=== PATIENT | male | born 1960 | race Caucasian/White ===

== ENCOUNTER 2020-07-28 22:23 | Inpatient (IN) | payer OTHER, SELFPAY ==
[2020-07-28] VITALS (18 sets, daily range): BP systolic 137–191; BP diastolic 92–155; PULSE 86–99; RESP 10–26; TEMP 37; O2SAT 93–99
--- NOTE | 2020-07-28 22:15 | RT.EKG_ITS ---
APPROVED REPORT Exam: Resting ECG Patient Location: E HR:95 bpm ECG Measurements Heart Rate 95 AXIS LA 171 P 33 QRSd 117 QRS -13 QT 363 T 66 QTc 458 Conclusion Sinus rhythm...normal P axis, V-rate 60- 99 Incomplete right bundle branch block...QRSd >112, terminal axis(90,270) No STEMI
--- NOTE | 2020-07-28 22:38 | ED.GENADUL_ITS ---
Discharge Plan Disposition Patient Disposition: [facility] INPATIENT Condition: Stable Discharge Details Clinical Impression: ACS (acute coronary syndrome) Admit Date/Time: 07/29/20 06:01 Admit Provider: Keon Cobos Attending Provider: Keon Cobos Primary Care Provider: Unknown,Unknown ED Provider: Dandy Arreola Discharge Data Discharge Date/Time-TO BE ENTERED AT DEPARTURE: 07/29/20 06:53 Medical Decision Making <FLEX Dorman - Last Filed: 07/30/20 08:11> Patient is a pleasant 60-year-old male past medical history significant for hypertension multiple orthopedic surgeries, presenting today with chief complaint of chest pain. He reports that yesterday and today he complains chest pain 30 minutes after eating Ecu[place] food. States that he has been physically active including snowblowing but pain is not brought on with exertion. He denies any associated symptoms such as shortness of breath, fever, cough, nausea, vomiting. Pain does not radiate. He has no pain in his back. He states that prior to the past 2 days, he has not experienced symptoms like this historically. Patient did come up from [place] 2 weeks ago. On exam, patient appears nontoxic. Is resting comfortably. He is morbidly obese. Normal cardiac exam, lung sounds are clear. No abdominal pain on palpation, negative Duval sign. No lower extremity edema, soft and nontender. Patient reports that he did take aspirin prior to arrival. He reports that his pain is improving since initial onset at 7 PM. Patient history, symptoms most consistent with a GI source as it is nonexertional and only associated with eating Ecuadorean food. No evidence to suggest gallbladder disease on exam. Patient is obese and does have a history of hypertension. His father had CABG at the age of 65. Also considered potenti al ACS, plan for troponin. HEART score 3. His history and exam is not consistent with PE. No evidence on exam or history to suggest dissection. No trauma. No rash. ECG was and I specifically asked about [address] Arreola. Patient is in sinus rhythm with a rate of 95. Incomplete right bundle branch block noted. No evidence to suggest a STEMI. No previous for comparison. We will give the patient oral Mylanta. Patient's blood pressure significantly improved once he was able to calm down in the room. He continues to appear nontoxic and is resting comfortably. Pain completely subsided after GI cocktail. At the end of my shift, care transition to Dr. Arreola with labs and imaging pending. Plan to obtain repeat troponin. <Dandy Arreola MD - Last Filed: 07/29/20 06:00> Patient signed out to me pending repeat EKG and troponin after presenting with chest discomfort. The discomfort went away with Mylanta. He had it for about 4 hours prior to presenting. He also had chest pain last night after eating. He has not had pain with activity and has been able to walk a mile, shovel snow, split and pile wood. He has had no recurrent pain here since it resolved with the Mylanta. His repeat EKG is unchanged and is sinus rhythm with incomplete right bundle branch block and probable LVH. His repeat troponin did bump slightly from less than 0.05 to 0.07. Doubt that this has any clinical significance and I do believe his symptoms are related to GI pathology. However, given his age and risk factors I have had further discussion with the patient. We will plan another 3-hour troponin and EKG and observation here in the ED. 05:15 - Patient has remained pain-free with stable vital signs. Repeat EKG is unchanged. Troponin continues to climb and is now 0.34. Calls placed to [facility] and [facility] but both facilities full and not taking transfers unless emergent. Discussed with cardiology at [facility], will keep here on heparin and trend troponins. Loaded with Plavix 300 mg. Start Lopressor and Lipitor. Call back this afternoon to check on bed status for transfer. Call back emergently if any significant changes. Case discussed with hospitalist here. Patient will be admitted to ICU on heparin for further monitoring and trending of enzymes. Lab Data Lab results reviewed: Yes I reviewed the patient's lab results. ECG Data Attestation: I personally reviewed and interpreted this ECG (s) as follows: Interpretation: see EKG HPI <FLEX Dorman - Last Filed: 07/30/20 08:11> General Mode of arrival: ambulatory . Date/Time Provider Initiated Documentation: 07/28/20 22:24 . Limitations to Documentation: no limitations . Information obtained by: patient and RN notes reviewed . History of Present Illness 60 year old M presents to the emergency department with the chief complaint of chest pain, described as moderate, with intensity rated at 4. Quality is described as other (squeezing), and is localized to the chest. Patient reports no radiation. Patient started experiencing this hour(s) and it has been intermittent. No relieving factors improve symptom(s), Eating worsens symptoms . Patient notes chest pain; denies cough, diaphoresis, fever/chills, loss of appetite, nausea/vomiting, shortness of breath and syncope. Patient did receive the following treatments prior to arrival, none Related Data Home Medications Medication Instructions Recorded Confirmed amlodipine 10 mg PO HS 07/28/20 07/29/20 aspirin [Aspir-81] 81 mg PO DAILY AM 07/28/20 07/28/20 Allergies Allergy/AdvReac Type Severity Reaction Status Date / Time No Known Allergies Allergy Unverified 07/28/20 22:37 General Stated Complaint: Chest Pain NARCISA: 2 Review of Systems <FLEX Dorman - Last Filed: 07/30/20 08:11> Constitutional Constitutional: Reports as per HPI, Denies chills, Denies fever(s), Denies headache(s), Denies lethargy and Denies poor appetite Eyes Eyes: Denies change in vision ENT Ears, Nose, Mouth, and Throat: Denies dizziness and Denies headache(s) Cardiovascular Cardiovascular: Reports as per HPI, Denies dyspnea and Denies dyspnea on exertion Respiratory Respiratory: Reports as per HPI, Denies chest congestion, Denies cough, Denies pain on inspiration, Denies pain with cough, Denies dyspnea, Denies dyspnea on exertion and Denies wheezing Gastrointestinal Gastrointestinal: Reports as per HPI, Denies abdominal pain, Denies diarrhea, Denies nausea and Denies vomiting Genitourinary Genitourinary: Denies system reviewed and no additional complaints, except as documented (denies change in urinary habits) Musculoskeletal Musculoskeletal: Reports as per HPI and Denies back pain Integumentary/Breasts Skin/Breast: Reports as per HPI and Denies rash Neurologic Neurologic: Reports as per HPI, Denies dizziness and Denies headache(s) Allergic/Immunologic Allergic/Immunologic: Denies wheezing PFSH <FLEX Dorman - Last Filed: 07/30/20 08:11> Medical History HTN (hypertension) Peripheral vascular disease Family History (Updated 07/29/20 @ 07:15 by Keon Cobos) Sister Diabetes Social History Smoking/Tobacco Use Status: Never Smoking risk assessment performed?: Yes Alcohol Intake: current Alcohol Intake frequency: 0-2 drinks per day Substance use type: does not use Do you feel safe at home: Yes Do you feel safe in your relationship?: Yes Exam <FLEX Dorman - Last Filed: 07/30/20 08:11> Const General: cooperative, healthy appearing, comfortable, no acute distress and well developed Nutritional Appearance: well nourished and obese Orientation: alert, awake and oriented x3 HENMT Head: normal to inspection Ears: hearing grossly normal bilaterally Mouth: moist mucous membranes Chest Chest: normal inspection of the chest, normal palpation of entire chest wall and no crepitus Resp Effort & Inspection: normal respiratory effort, able to speak in complete sentences and no respiratory distress Auscultation: clear to auscultation bilaterally, no rales, no rhonchi and no wheezes Cardio Rate: regular rate Rhythm: regular rhythm Heart Sounds: S1 normal and S2 normal GI Inspection: normal to inspection, no edema and non-distended Palpation: soft, no hepatosplenomegaly, not firm, no guarding, not rigid and nontender (negative Duval's) Auscultation: normal bowel sounds Skin General skin exam: no rashes or lesions noted Trauma: no lacerations or abrasions Neuro General: patient alert, patient awake and patient oriented x3 Cognition: normal cognition Speech: speech normal Gait: normal gait Extrem General: normal to inspection, capillary refill normal, no pedal edema, no calf tenderness and normal gait Psych Appearance: grossly normal and well kempt Mental Status: mental status grossly normal Speech and Movement: speech and movement normal Course <FLEX Dorman - Last Filed: 07/30/20 08:11> Vital Signs Vital signs: Vital Signs Temperature 37 C 07/28/20 22:33 Pulse 99 H 07/28/20 22:33 Respiratory Rate 07/28/20 22:33 Blood Pressure 191/95 H 07/28/20 22:33 Pulse Oximetry 98 07/28/20 22:33 Temperature 37 C 07/28/20 22:33 Pulse 99 H 07/28/20 22:33 Respiratory Rate 21 07/28/20 22:33 Blood Pressure 191/95 H 07/28/20 22:33 Blood Pressure Position Supine 07/28/20 22:33 Pulse Oximetry 98 07/28/20 22:33 Oxygen Delivery Method Room Air 07/28/20 22:33 Oxygen Flow Rate 0 07/28/20 22:33 Pain Level 4 07/28/20 22:33 Sign Out <FLEX Dorman - Last Filed: 07/30/20 08:11> Sign Out Data: Sign Out Comment: Care transitioned to Dr. Arreola with repeat troponin pending. Patient asymptomatic after Mylanta. Last updated by Niecy Tripp PA at 07/28/20 23:31
[2020-07-28 22:52] LABS: Abs Immature Grans 0.03 10^3/uL (0.0-0.06); Absolute Basophil Count 0.04 10^3/uL (0.0-0.2); Absolute Monocyte Count 0.74 10^3/uL (0.1-0.8); Absolute Neutrophil Count 4.94 10^3/uL (1.2-6.7); Basophils % 0.5; Eosinophils % 1.3; HGB 14.8 g/dL (13.5-17.5); Immature Grans % 0.4; Lymphocytes % 24.5; MCHC 34.4 % (32.0-36.0); MCV 87.2 fL (80-95); Monocytes % 9.5; Neutrophils % 63.8; Nucleated RBC 0 %; Platelet Count 181 10^3/uL (130-400); RBC 4.93 10^6/uL (4.36-5.78); RDW 12.3 % (11.8-14.1); RDW-SD 39.5 fL; WBC 7.75 10^3/uL (4.4-10.8)
[2020-07-28] MEDS: Mylanta Suspension 30 ML CUP PO (22:57)
[2020-07-28 23:07] LABS: ALT 41 U/L (16-63); AST 19 U/L (15-37); Albumin 3.7 g/dL (3.4-5.0); Alkaline Phosphatase 97 U/L (46-116); Anion Gap 10.7 mmol/L (3-11); BUN 12 mg/dL (7-18); Bilirubin, Total 0.2 mg/dL (0.2-1.0); CO2 26.3 mmol/L (21.0-32.0); CREATININE 1.2 mg/dL (0.70-1.30); Calcium 8.7 mg/dL (8.5-10.1); Chloride 103 mmol/L (98-107); Glucose 222 mg/dL (74-106); Magnesium 1.8 mg/dL (1.8-2.4); Potassium 3.4 mmol/L (3.5-5.1); Sodium 140 mmol/L (136-145); Total Protein 7.4 g/dL (6.4-8.2); Troponin I < 0.05 ng/mL (<0.06)
--- NOTE | 2020-07-28 23:07 | DI.RAD_ITS ---
EXAM: XR CHEST 2V PA LATERAL CLINICAL HISTORY: CP. Chest pain TECHNIQUE: 2D digital imaging was performed. COMPARISON: None FINDINGS: Heart size is normal. The mediastinum is not widened. Lungs are clear. No infiltrates nor pleural effusions. IMPRESSION: No acute pulmonary findings. DATA REPOSITORY: RADIATION DOSE DELIVERED:
--- NOTE | 2020-07-28 23:16 | DI.VRAD_ITS ---
PROCEDURE INFORMATION: Exam: XR Chest, 2 Views Exam date and time: 07/28/2020 10:39 PM Age: 60 years old Clinical indication: Chest pain; Type not specified TECHNIQUE: Imaging protocol: XR of the chest Views: 2 views. COMPARISON: No relevant prior studies available. FINDINGS: Lungs: Unremarkable. No consolidation. Pleural spaces: Unremarkable. No pleural effusion. No pneumothorax. Heart/Mediastinum: Unremarkable. No cardiomegaly. Bones/joints: No acute skeletal abnormality or aggressive osseous lesion. IMPRESSION: Negative for acute thoracic pathology. Dictated and Authenticated by: Clarence Locke MD. Ordering:FAUSTINA Pemberton MD
[2020-07-28 23:36] LABS: PTT Activated 21.9 sec (21.0-27.5); Prothrombin Time 9.9 sec (9.3-11.0)
[2020-07-29] VITALS (80 sets, daily range): BP systolic 117–175; BP diastolic 69–106; PULSE 61–95; RESP 11–30; TEMP 36.2–36.8; O2SAT 92–98
--- NOTE | 2020-07-29 01:00 | RT.EKG_ITS ---
APPROVED REPORT Exam: Resting ECG Patient Location: E HR:84 bpm ECG Measurements Heart Rate 84 AXIS NJ 164 P 40 QRSd 116 QRS -18 QT 387 T 19 QTc 459 Conclusion Sinus rhythm...normal P axis, V-rate 60- 99 Incomplete right bundle branch block...QRSd >112, terminal axis(90,270) Probable left ventricular hypertrophy...multiple LVH criteria There are no significant changes compared to prior EKG performed on 07/28/2020 at 22:31.
[2020-07-29 01:58] LABS: Troponin I 0.07 ng/mL (<0.06)
[2020-07-29 03:03] LABS: Hemoglobin A1C 6.1 % (<5.7)
--- NOTE | 2020-07-29 04:30 | RT.EKG_ITS ---
APPROVED REPORT Exam: Resting ECG Patient Location: E HR:79 bpm ECG Measurements Heart Rate 79 AXIS PA 169 P 42 QRSd 116 QRS -20 QT 393 T 8 QTc 451 Conclusion Sinus rhythm...normal P axis, V-rate 60- 99 Incomplete right bundle branch block...QRSd >112, terminal axis(90,270) Probable left ventricular hypertrophy...multiple LVH criteria There are no significant changes compared to prior EKG performed on 07/29/2020 at 01:43.
[2020-07-29 05:03] LABS: Troponin I 0.34 ng/mL (<0.06)
[2020-07-29 05:46] LABS: Source Nasopharynx
[2020-07-29] MEDS: Clopidogrel 300 MG TAB PO (05:56)
[2020-07-29] MEDS: Atorvastatin 40 MG TAB 80 MG PO ×2 (05:56→20:18)
[2020-07-29] MEDS: Metoprolol 25 MG TAB PO ×5 (05:57→20:18)
[2020-07-29 06:24] LABS: COVID-19 PCR Negative (Negative); Influenza A PCR Negative (Negative); Influenza B PCR Negative (Negative); RSV PCR Negative (Negative)
--- NOTE | 2020-07-29 07:05 | W.PM.HP.N ---
Date of service: 07/29/20 Time of Service: 07:05 Assessment and Plan Assessment and plan (1) ACS (acute coronary syndrome): Start date: 07/29/20 Start time: 07:25 Status: Acute Assessment and plan: Case discussed by ED staff with [facility]. They have no beds currently. They recommend hep gtt, Plavix load and then 75 daily. Trend Trop. Anticipate cath in 2-3 days. Meanwhile, pursue TTE and control double-product (rate and blood pressure). Continue amlodipine. Add metoprolol tartrate 25mg bid. Tele monitor. (2) HTN (hypertension): Start date: 07/29/20 Start time: 07:28 Status: Chronic Assessment and plan: As above, continue amlodipine and add metop. Full Code Qualifiers: Hypertension type: essential hypertension Qualified Code(s): I10 - Essential (primary) hypertension History of Present Illness Mr Palmer is a 60yo M with h/o HTN, obesity, and PVD (had recurrent RLE cellulitis that was attributed to peripheral venous disease) who developed CP over the last 48 hours. He is moving here from [facility] and has been getting the house ready for his family and has been doing a lot of work clearing snow and chopping wood. Sunday evening after eating Croatian food, he developed a tight, chest pressure. It was worse leaving forward and better extending his back, and it resolved after a few hours. He had been shoveling snow earlier that day without any CP but has noted more fatigability recently, more BENNETT. He felt fine Sunday am, but again after dinner and a leonardo, he felt a dull, tight, pressure in his chest. Again, it got better extending his back and a little better with aspirin. He denies any other associated symptoms: no radiation, nausea, palpitations, diaphoresis, or SOB. The pain did not go away this time, so eventually, he decided he should come to the ED. He got some Mylanta in the ED which gave him good relief from the CP. Review of Systems Constitutional Constitutional: Reports system reviewed and no additional complaints, except as documented Eyes Eyes: Reports system reviewed and no additional complaints, except as documented ENT Ears, Nose, Mouth, and Throat: Reports system reviewed and no additional complaints, except as documented Cardiovascular Cardiovascular: Reports as per HPI Respiratory Respiratory: Reports system reviewed and no additional complaints, except as documented Gastrointestinal Gastrointestinal: Reports system reviewed and no additional complaints, except as documented Genitourinary Genitourinary: Reports system reviewed and no additional complaints, except as documented Musculoskeletal Comments: Chronic, diffuse arthralgias but none acute Neurologic Neurologic: Reports system reviewed and no additional complaints, except as documented [facility] Medical History HTN (hypertension) Peripheral vascular disease Family History (Updated 07/29/20 @ 07:15 by Keon Cobos) Sister Diabetes Social History Smoking/Tobacco Use Status: Never Smoking risk assessment performed?: Yes Alcohol Intake: current Alcohol Intake frequency: 0-2 drinks per day Substance use type: does not use Do you feel safe at home: Yes Do you feel safe in your relationship?: Yes Meds Home Medications and Allergies Home Medications Medication Instructions Recorded Confirmed Type amlodipine 10 mg PO HS 07/28/20 07/29/20 History aspirin [Aspir-81] 81 mg PO DAILY AM 07/28/20 07/28/20 History Allergies Allergy/AdvReac Type Severity Reaction Status Date / Time No Known Allergies Allergy Unverified 07/28/20 22:37 Exam Const Nutritional Appearance: obese Orientation: alert, awake and oriented x3 HENMT Head: normal to inspection Eyes General: appearance normal, both eyes and all related structures Pupils: PERRL EOM: EOM intact bilaterally Neck Neck: full ROM and no lymphadenopathy Resp Effort & Inspection: normal respiratory effort and able to speak in complete sentences Auscultation: clear to auscultation bilaterally Percussion: percussion normal Cardio Rate: regular rate Rhythm: regular rhythm Heart Sounds: S1 normal and S2 normal GI Inspection: other (Ventral hernia) Palpation: soft Auscultation: normal bowel sounds Skin General skin exam: no rashes or lesions noted Neuro Motor: muscle tone normal throughout Extrem General: normal to inspection, full ROM and no pedal edema Results ECG: SR at 95bpm with incomplete RBBB Labs Result diagrams: 07/28/20 22:45 07/28/20 22:45 Labs: Laboratory Results - last 24 hr 07/28/20 07/28/20 07/28/20 22:45 22:45 22:45 WBC 7.75 RBC 4.93 Hgb 14.8 Hct 43.0 MCV 87.2 MCH 30.0 MCHC 34.4 RDW 12.3 Plt Count 181 MPV 11.0 Immature Gran % 0.4 Neutrophils % 63.8 Lymphocytes % 24.5 Monocytes % 9.5 Eosinophils % 1.3 Basophils % 0.5 Nucleated RBC % 0 Absolute Neutrophils 4.94 Absolute Lymphocytes 1.90 Absolute Monocytes 0.74 Absolute Eosinophils 0.10 Absolute Basophils 0.04 PT 9.9 INR 1.0 APTT 21.9 Sodium 140 Potassium 3.4 L Chloride 103 Carbon Dioxide 26.3 Anion Gap 10.7 BUN 12 Creatinine 1.2 Estimated GFR/1.73 m2 >= 60.00 Glucose 222 H Hemoglobin A1c Calcium 8.7 Magnesium 1.8 Total Bilirubin 0.2 AST 19 ALT 41 Alkaline Phosphatase 97 Troponin I < 0.05 Total Protein 7.4 Albumin 3.7 COVID-19 Source SARS-CoV-2 (PCR) Influenza Type A (PCR) Influenza Type B (PCR) RSV (PCR) 07/28/20 07/29/20 07/29/20 22:45 01:35 04:44 WBC RBC Hgb Hct MCV MCH MCHC RDW Plt Count MPV Immature Gran % Neutrophils % Lymphocytes % Monocytes % Eosinophils % Basophils % Nucleated RBC % Absolute Neutrophils Absolute Lymphocytes Absolute Monocytes Absolute Eosinophils Absolute Basophils PT INR APTT Sodium Potassium Chloride Carbon Dioxide Anion Gap BUN Creatinine Estimated GFR/1.73 m2 Glucose Hemoglobin A1c 6.1 H Calcium Magnesium Total Bilirubin AST ALT Alkaline Phosphatase Troponin I 0.07 H 0.34 H* Total Protein Albumin COVID-19 Source SARS-CoV-2 (PCR) Influenza Type A (PCR) Influenza Type B (PCR) RSV (PCR) 07/29/20 05:40 WBC RBC Hgb Hct MCV MCH MCHC RDW Plt Count MPV Immature Gran % Neutrophils % Lymphocytes % Monocytes % Eosinophils % Basophils % Nucleated RBC % Absolute Neutrophils Absolute Lymphocytes Absolute Monocytes Absolute Eosinophils Absolute Basophils PT INR APTT Sodium Potassium Chloride Carbon Dioxide Anion Gap BUN Creatinine Estimated GFR/1.73 m2 Glucose Hemoglobin A1c Calcium Magnesium Total Bilirubin AST ALT Alkaline Phosphatase Troponin I Total Protein Albumin COVID-19 Source Nasopharynx SARS-CoV-2 (PCR) Negative Influenza Type A (PCR) Negative Influenza Type B (PCR) Negative RSV (PCR) Negative Last Vital Signs Temp 37 C 07/28/20 22:33 Pulse 85 07/29/20 06:01 Resp 17 07/29/20 06:30 BP 140/105 H 07/29/20 06:01 Pulse Ox 96 07/29/20 06:30 COVID-19 Screening Have you, or household traveled for leisure in last 14 days?: No Had IN PERSON contact w/suspected or confirmed C-19 person: No
[2020-07-29] MEDS: Pantoprazole 40 MG TABCR PO (08:46)
[2020-07-29] MEDS: Potassium Chloride Liquid 20 MEQ PKT 40 MEQ PO (08:46)
--- NOTE | 2020-07-29 08:55 | PDOC.CMIN ---
- If Service Date Differs Date of service: 07/29/20 Time of Service: 08:55 Care Management Initial Assess REASON FOR HOSPITALIZATION:: ACS PAST MEDICAL HISTORY/PAST SURGICAL HISTORY:: HTN, PVD PREVIOUS FUNCTIONAL STATUS/SOCIAL/FAMILY SUPPORTS:: Max resides with his Bibi in [place], [place]. He is independent with ADLs in the community. CURRENT FUNCTIONAL STATUS:: Max remains in the ICU awaiting bed availability at [facility]. He is comfortable at this time and continues to be closely monitored. ADVANCE DIRECTIVES:: None on file at [facility]. Has patient been provided with info about the portal/API?: Yes Did the patient sign up for the portal?: No CODE STATUS:: Full Code INSURANCE COVERAGE / FINANCIAL ISSUES:: [employer] U IDs Only CURRENT HOME/COMMUNITY SERVICES/EQUIPMENT:: No current services or equipment PRIMARY CARE PHYSICIAN:: None listed, possible attachment. POTENTIAL DISCHARGE NEEDS:: PCP attachment PATIENT/FAMILY EDUCATION NEEDS:: Review discharge instructions, discuss Ask Me Three. ANTICIPATED BARRIERS TO DISCHARGE:: None identified. TRANSPORTATION:: Via private vehicle with his . PLAN:: Juan continues to be closely monitored in the ICU at this time. CM continues to follow. Per MD, Max has been accepted in transfer to [facility]; awaiting bed availability. Max will transport via EMS, coordinated by Nursing Licensed Master Social Worker.
[2020-07-29] MEDS: Aspirin E.C. 81 MG TABEC PO (09:11)
[2020-07-29 09:44] LABS: Calculated LDL 86 mg/dL (<100); Cholesterol 178 mg/dL (<200); HDL Cholesterol 36 mg/dL (40-60); Triglyceride 283 mg/dL (<150)
--- NOTE | 2020-07-29 10:24 | PGE_ITS ---
Date of Service Date of service: 07/29/20 Time of Service: 10:24 Assessment and Plan Assessment and plan (1) ACS (acute coronary syndrome): Status: Acute Assessment and plan: Continue aspirin Plavix Heparin, atorvastatin, Lopressor. Transfer to [facility] as soon as a bed becomes available for cardiac catheterization. (2) HTN (hypertension): Status: Chronic Assessment and plan: Patient was resumed on his usual dose of Norvasc. Apparently he was intolerant to lisinopril as it caused an incessant cough. He could be tried on losartan once he stabilized from his ACS. Qualifiers: Hypertension type: essential hypertension Qualified Code(s): I10 - Essential (primary) hypertension (3) Impaired glucose regulation: Status: Acute Assessment and plan: Glycohemoglobin A1c is 6.1%. He presented with a glucose of 222 but there is a nonfasting level. We will cover with sliding scale insulin and monitor his blood sugars before meals and at bedtime. No need for further formal work-up sooner possible latent diabetes mellitus. Including repeat fasting glucose and 2-hour postprandial glucose. Subjective Subjective Interval history since last seen: 60-year-old male with a history of essential hypertension, chronic venous insufficiency with previous episodes of lower extremity cellulitis who is a non-smoker recently moved to [place] from [facility]. Patient presented to the emergency department last night with atypical chest discomfort that began 2 nights ago after eating [place] takeout. He attributed to indigestion. His discomfort lasted couple hours then subsided when he went to bed. Yesterday he has been doing a lot of snowblowing and splitting wood with no exertional chest pain or pressure but with exertional dyspnea. He attributed the dyspnea due to being deconditioned and overweight. However he had recurrent discomfort last night again after a meal and having a leonardo . This occurred around 8 pm and when the pain did not let up he took a couple aspirin and because of his family history of premature coronary artery disease he was concerned it might be his heart so he came to the ER around 10:30 pm last night. He says that initially he was given antacids in the ER and his CP subsided about an hour later. His initial troponin was normal <0.05 but repeat one came back elevated at 0.07 and has continued to rise w/ last one at 10:30 am at 0.77. His EKG's showed NSR w/ incomplete RBBB and probable LVH. He was started on atorvastatin, ASA, Plavix and heparin drip and lopressor. He is currently pain free and denies any dyspnea. Exam Narrative Exam Narrative: Obese middle-aged male lying in bed no acute distress he is alert and oriented person place time circumstance. Neck is obese no JVD normal carotid pulses Lungs are clear to auscultation Heart regular rate and rhythm without appreciable murmur rub or gallop. Abdomen is obese soft and nontender Extremities without peripheral cyanosis or edema Neuro exam grossly intact Objective Last Vital Signs Temp 36.8 C 07/29/20 08:07 Pulse 71 07/29/20 08:07 Resp 17 07/29/20 07:53 BP 138/84 07/29/20 07:53 Pulse Ox 97 07/29/20 07:53 Laboratory Results - last 24 hr 07/28/20 07/28/20 07/28/20 22:45 22:45 22:45 WBC 7.75 RBC 4.93 Hgb 14.8 Hct 43.0 MCV 87.2 MCH 30.0 MCHC 34.4 RDW 12.3 Plt Count 181 MPV 11.0 Immature Gran % 0.4 Neutrophils % 63.8 Lymphocytes % 24.5 Monocytes % 9.5 Eosinophils % 1.3 Basophils % 0.5 Nucleated RBC % 0 Absolute Neutrophils 4.94 Absolute Lymphocytes 1.90 Absolute Monocytes 0.74 Absolute Eosinophils 0.10 Absolute Basophils 0.04 PT 9.9 INR 1.0 APTT 21.9 Sodium 140 Potassium 3.4 L Chloride 103 Carbon Dioxide 26.3 Anion Gap 10.7 BUN 12 Creatinine 1.2 Estimated GFR/1.73 m2 >= 60.00 Glucose 222 H Hemoglobin A1c Calcium 8.7 Magnesium 1.8 Total Bilirubin 0.2 AST 19 ALT 41 Alkaline Phosphatase 97 Troponin I < 0.05 Total Protein 7.4 Albumin 3.7 Triglycerides Total Cholesterol LDL Cholesterol, Calc HDL Cholesterol COVID-19 Source SARS-CoV-2 (PCR) Influenza Type A (PCR) Influenza Type B (PCR) RSV (PCR) 07/28/20 07/29/20 07/29/20 22:45 01:35 02:41 WBC RBC Hgb Hct MCV MCH MCHC RDW Plt Count MPV Immature Gran % Neutrophils % Lymphocytes % Monocytes % Eosinophils % Basophils % Nucleated RBC % Absolute Neutrophils Absolute Lymphocytes Absolute Monocytes Absolute Eosinophils Absolute Basophils PT INR APTT Sodium Potassium Chloride Carbon Dioxide Anion Gap BUN Creatinine Estimated GFR/1.73 m2 Glucose Hemoglobin A1c 6.1 H Calcium Magnesium 2.0 Total Bilirubin AST ALT Alkaline Phosphatase Troponin I 0.07 H Total Protein Albumin Triglycerides 283 H Total Cholesterol 178 LDL Cholesterol, Calc 86 HDL Cholesterol 36 L COVID-19 Source SARS-CoV-2 (PCR) Influenza Type A (PCR) Influenza Type B (PCR) RSV (PCR) 07/29/20 07/29/20 04:44 05:40 WBC RBC Hgb Hct MCV MCH MCHC RDW Plt Count MPV Immature Gran % Neutrophils % Lymphocytes % Monocytes % Eosinophils % Basophils % Nucleated RBC % Absolute Neutrophils Absolute Lymphocytes Absolute Monocytes Absolute Eosinophils Absolute Basophils PT INR APTT Sodium Potassium Chloride Carbon Dioxide Anion Gap BUN Creatinine Estimated GFR/1.73 m2 Glucose Hemoglobin A1c Calcium Magnesium Total Bilirubin AST ALT Alkaline Phosphatase Troponin I 0.34 H* Total Protein Albumin Triglycerides Total Cholesterol LDL Cholesterol, Calc HDL Cholesterol COVID-19 Source Nasopharynx SARS-CoV-2 (PCR) Negative Influenza Type A (PCR) Negative Influenza Type B (PCR) Negative RSV (PCR) Negative Reviewed Pertinent PMH: Yes Objective Narrative Objective Narrative: Cardiac POCUS was attempted but inadequate images were obtained to make any determination of his LV function.
[2020-07-29 10:50] LABS: Troponin I 0.77 ng/mL (<0.06)
[2020-07-29 11:54] LABS: PTT Activated 25.6 sec (21.0-27.5)
[2020-07-29 14:11] LABS: Troponin I 0.81 ng/mL (<0.06)
--- NOTE | 2020-07-29 14:15 | RT.EKG_ITS ---
APPROVED REPORT Exam: Resting ECG Patient Location: I HR:68 bpm ECG Measurements Heart Rate 68 AXIS CO 188 P 29 QRSd 114 QRS -21 QT 399 T 0 QTc 426 Conclusion Sinus rhythm...normal P axis, V-rate 60- 99 Incomplete right bundle branch block...QRSd >112, terminal axis(90,270) Probable left ventricular hypertrophy...multiple LVH criteria
[2020-07-29 14:59] LABS: ESR 15 mm/hr (<or=20)
--- NOTE | 2020-07-29 15:56 | W.INDIABCONS ---
Date of service: 07/29/20 Time of Service: 15:56 Diabetes Inpatient Consult DESCRIPTION/ASSESSMENT: 60 yo of male admitted with acute coronary syndrome, HTN, NSTEMI with morbid obesity and impaired glucose regulation. 6' 332 lbs, BMI: 45. Most recent A1C:6.1% indicating elevated blood sugars, Tri H, HDL: 36L. Met with Juan today to discuss ways to lose weight ( a minimum of 10%) in next 3 months for heart health. Juan motivated. Goal wt in next 12 months: 250 lbs. INTERVENTION: Educated pt on lower calorie and lower carb diet with emphasis on complex carbs, lean protein and non starchy vegetables. Provided education materials and contact info to follow up with questions/concerns or to be followed outpatient. PLAN: continue heart healthy diet, will monitor po intake, labs and weight. Time Spent in Nutritional Counseling and Treatment: 20 min
[2020-07-29 18:03] LABS: PTT Activated 35.8 sec (21.0-27.5)
[2020-07-29 18:07] LABS: Troponin I 0.75 ng/mL (<0.06)
[2020-07-29 18:40] LABS: Potassium 3.8 mmol/L (3.5-5.1)
--- NOTE | 2020-07-29 18:49 | W.PM.DS.N ---
Date of service: 07/30/20 Time of Service: 07:00 DS: Diagnosis Discharge Diagnosis (1) ACS (acute coronary syndrome): Status: Acute Asessment and Plan: Patient presented with 2-day history of intermittent atypical chest discomfort and exertional dyspnea. Please see admission H&P for details. In summary patient had serial EKGs that showed no acute ischemic or injury pattern but demonstrated normal sinus rhythm with a incomplete right bundle branch block. Chest 2 Views showed no cardiomegaly and no acute cardiopulmonary disease. Serial troponins were measured and initial one was normal at less than 0.05 but a repeat level 3 hours after admission was elevated at 0.07 and during his hospitalization peaked at 0.81 before declining to 0.75. Patient was treated with aspirin, Plavix, Lopressor, systemic heparin. He remained pain-free throughout his hospital stay. Echocardiography was not available. Cardiology from [facility] was not able accept the patient therefore cardiology from [facility] was consulted and accepted the patient for transfer for cardiac catheterization. (2) HTN (hypertension): Status: Chronic Asessment and Plan: Blood pressure is very elevated on admission at 191/95 but with reinitiation of his Norvasc 10 mg daily and initiation of Lopressor 25 mg p.o. 4 times daily blood pressures have come down in the systolic range of 130-140s and diastolic blood pressures of 78-85. Heart rhythm is remained normal sinus rhythm although he has had some occasional PVCs and on admission he had actually had some ventricular bigeminy which is resolved with Lopressor. (3) Impaired glucose regulation: Status: Acute Asessment and Plan: Patient demonstrated impaired glucose with an elevated nonfasting lab drawn blood glucose of 222. Patient was placed on sliding scale of insulin and serial blood sugars have been monitored and have remained between 114 and 122. Glycohemoglobin A1c is elevated at 6.1%. (4) Hypertriglyceridemia: Status: Acute Asessment and Plan: Lipid panel was obtained and demonstrated triglycerides of 283, total cholesterol 178, LDL 86, HDL 36. Patient was started on atorvastatin 80 mg. Discharge Plan Disposition Patient Disposition: [facility] ([facility]) Condition: Stable Discharge Details Reason For Visit: ACS Admit Date/Time: 07/29/20 06:01 Admit Provider: Keon Cobos Attending Provider: Keon Cobos Primary Care Provider: Unknown,Unknown Hospital Course Hospital Course: 60-year-old male with a history of central hypertension presented with 2-day history of intermittent atypical chest discomfort and exertional dyspnea. See admission H&P for details of presenting symptoms. Initially thought to be indigestion but further evaluation emergency department showed elevated troponin levels with initial level being less than 0.05 and repeat level rising to 0.07 and 0.34. EKG showed sinus rhythm with right bundle branch block but no ST elevation. Patient's chest discomfort subsided about an hour after he been given an acids. Patient was never treated with nitroglycerin. The ER attending contacted [facility] cardiology on-call and faxed the EKGs and after discussing the case it was found that there were no beds available at [facility] so the patient was admitted to [facility] medical intensive care unit. Further troponin levels were trended and peaked the next day at 0.81. Patient has remained pain-free since admission. Patient was loaded with Plavix 300 mg in the emergency department and started on a heparin drip and started on Lopressor and atorvastatin. The mechanic's assistant ordered an echocardiogram and a cardiology consult. Echocardiography was not available as the machine inspector was away on bereavement. The next morning after admission the onsite director of parks and recreation at [facility] from [facility] called me to discuss the case and indicated that we had the patient on appropriate medical treatment and when he learned that the patient was scheduled to be transferred to [facility] he did not complete the consult. When we did not receive any phone call to update the status of the patient's transfer to [facility] I made multiple phone calls in the afternoon to [facility] only to learn that the consultation had been canceled and the patient was not accepted for transfer to [facility]. When I requested such transfer I was told by [facility] transfer center that they did not take patients on a waiting list and I would have to call back tomorrow and see if any beds were available and discussed the case with the on-call director of parks and recreation. At that point I decided to call [facility] and went through the transfer center and was told that they were not excepting transfers at this time but they they would get me a director of parks and recreation on the phone to discuss the case. I faxed over the patient's EKGs to [facility] and discussed the case with Dr. Zack Broussard. After he reviewed the patient's history and pertinent labs and EKGs he indicated that he felt that the patient should not wait through the weekend to have a cardiac catheterization and he arrange for the patient to be transferred to the [facility] early on the morning of July 30, 2020 to be there by 10:30 AM and go straight to the cardiovascular unit for cardiac catheterization. Patient is to be n.p.o. after midnight on the evening of July 29, 2020. Patient has remained free of any chest pain or dyspnea. At the time of this dictation his last troponin as of 1742 and evening was down to 0.75 from a peak value of 0.81. Repeat EKGs this afternoon have showed no changes in his ST segments. Patient will be discharged in the morning on July 30, 2020 at 8 AM to arrive at [facility] at 10:30 AM for cardiac catheterization. Pertinent findings and his work-up included admission normal CBC, admission CMP from the ER demonstrated elevated glucose of 222, potassium of 3.1, normal renal function with a BUN of 12 and creatinine 1.2. Normal transaminases. Magnesium level normal at 1.8. Glycohemoglobin A1c was elevated at 6.1%. Initial troponin I was less than 0.05 with a repeat level while he was in the ER of 0.07. Subsequent rises in his troponin overnight where 0.34, 0.77 and a peak level of 0.81 at 1340 5 in the afternoon. Current level is 0.75. Lipid panel was obtained as triglycerides are elevated 283 with a low HDL of 36 and a normal total cholesterol of 178 with an LDL of 86. Potassium was corrected with 40 mEq orally on the morning of July 29, 2020 with a repeat level in the afternoon of 3.8. An ESR was ordered on the morning of July 29, 2020 but not able to be completed due to machinery failure. Rapid nasopharyngeal swab for SARS-CoV-2 PCR was negative. Chest x-ray on admission PA and lateral showed normal-sized heart no mediastinal widening lungs were clear. Serial EKGs demonstrated normal sinus rhythm with an incomplete right bundle branch block pattern but no ischemic ST depression nor elevation. Home Meds and New Rx's Prescriptions: No Action amlodipine 5 mg Tablet 10 mg PO HS RF: 0 aspirin [Aspir-81] 81 mg Tablet,Delayed Release (Dr/Ec) 81 mg PO DAILY AM RF: 0 Discharge Instructions Instructions: Acute Coronary Syndrome (DC) Referrals: Zack Broussard JR [ [facility]] - Discharge Orders Discharge Orders: Discharge Order (Routine); Ordered 07/30/20 Ordered By: Sam Smith DS: Summary Time Spent with Patient providing and/or coordinating discharge services: Greater than 30 minutes Specific discharge activities: Coordination of transfer with [facility] Status at Discharge Functional status at discharge: independent ambulation Overall status at discharge: patient is progressing back to baseline Mental Status: mental status grossly normal Speech and Movement: speech and movement normal Mood: congruent mood Affect: normal affect Exam Narrative Exam Narrative: On the morning of discharge patient remains pain-free and denies any dyspnea or palpitations. General appearance obese male who is sitting up in bed watching TV in no distress. Neck is obese supple nontender no JVD normal carotid pulses no bruits Lungs are clear to auscultation Heart regular rate and rhythm no appreciable murmur rub or gallop Review of telemetry shows he is remained in sinus rhythm with rare PACs but no ventricular arrhythmias or supraventricular arrhythmias. Psych Mental Status: mental status grossly normal Speech and Movement: speech and movement normal Mood: congruent mood Affect: normal affect DS: Data Vitals/I&O Vitals and I&O: Vital Signs Temperature 36.4 C L 07/29/20 15:36 Temperature Source Temporal Artery Scan 07/29/20 15:36 Pulse 71 07/29/20 15:36 Pulse 66 07/29/20 15:20 Respiratory Rate 18 07/29/20 15:20 Respiratory Effort Non-Labored 07/29/20 15:36 Respiratory Depth Normal 07/29/20 15:36 Respiratory Pattern Normal 07/29/20 15:36 Blood Pressure 141/82 H 07/29/20 15:01 Blood Pressure Mean 93 07/29/20 15:01 Blood Pressure Position Supine 07/29/20 15:36 Pulse Oximetry 96 07/29/20 12:16 Oxygen Delivery Method Room Air 07/29/20 15:36 Oxygen Flow Rate 0 07/29/20 15:36 Pain Level 0 07/29/20 15:36 Intake & Output 07/28/20 07/29/20 07/29/20 23:59 11:59 23:59 Intake Total 240 / 943.575 703.575 / 943.575 Output Total 450 / 450 Balance 240 / 493.575 253.575 / 493.575 Weight 161.8 kg 151.8 kg Intake: IV 153.575 / 153.575 Oral 240 / 790 550 / 790 Output: Urine 450 / 450 Other: Urine Color Yellow Urine Appearance Clear Urine Odor Normal Voiding Methods Urinal Data Completed and Pending Labs on day of discharge: Labs from last 24 hours 07/29/20 07/29/20 07/29/20 17:43 17:43 13:45 WBC RBC Hgb Hct MCV MCH MCHC RDW Plt Count MPV Immature Gran % Neutrophils % Lymphocytes % Monocytes % Eosinophils % Basophils % Nucleated RBC % Absolute Neutrophils Absolute Lymphocytes Absolute Monocytes Absolute Eosinophils Absolute Basophils ESR PT INR APTT 35.8 H D Sodium Potassium 3.8 Chloride Carbon Dioxide Anion Gap BUN Creatinine Estimated GFR/1.73 m2 Glucose Hemoglobin A1c Calcium Magnesium Total Bilirubin AST ALT Alkaline Phosphatase Troponin I 0.75 H* 0.81 H* Total Protein Albumin Triglycerides Total Cholesterol LDL Cholesterol, Calc HDL Cholesterol COVID-19 Source SARS-CoV-2 (PCR) Influenza Type A (PCR) Influenza Type B (PCR) RSV (PCR) 07/29/20 07/29/20 07/29/20 11:30 10:25 05:40 WBC RBC Hgb Hct MCV MCH MCHC RDW Plt Count MPV Immature Gran % Neutrophils % Lymphocytes % Monocytes % Eosinophils % Basophils % Nucleated RBC % Absolute Neutrophils Absolute Lymphocytes Absolute Monocytes Absolute Eosinophils Absolute Basophils ESR PT INR APTT 25.6 Sodium Potassium Chloride Carbon Dioxide Anion Gap BUN Creatinine Estimated GFR/1.73 m2 Glucose Hemoglobin A1c Calcium Magnesium Total Bilirubin AST ALT Alkaline Phosphatase Troponin I 0.77 H* Total Protein Albumin Triglycerides Total Cholesterol LDL Cholesterol, Calc HDL Cholesterol COVID-19 Source Nasopharynx SARS-CoV-2 (PCR) Negative Influenza Type A (PCR) Negative Influenza Type B (PCR) Negative RSV (PCR) Negative 07/29/20 07/29/20 07/29/20 04:44 02:41 02:41 WBC RBC Hgb Hct MCV MCH MCHC RDW Plt Count MPV Immature Gran % Neutrophils % Lymphocytes % Monocytes % Eosinophils % Basophils % Nucleated RBC % Absolute Neutrophils Absolute Lymphocytes Absolute Monocytes Absolute Eosinophils Absolute Basophils ESR 15 PT INR APTT Sodium Potassium Chloride Carbon Dioxide Anion Gap BUN Creatinine Estimated GFR/1.73 m2 Glucose Hemoglobin A1c Calcium Magnesium 2.0 Total Bilirubin AST ALT Alkaline Phosphatase Troponin I 0.34 H* Total Protein Albumin Triglycerides 283 H Total Cholesterol 178 LDL Cholesterol, Calc 86 HDL Cholesterol 36 L COVID-19 Source SARS-CoV-2 (PCR) Influenza Type A (PCR) Influenza Type B (PCR) RSV (PCR) 07/29/20 07/28/20 07/28/20 01:35 22:45 22:45 WBC RBC Hgb Hct MCV MCH MCHC RDW Plt Count MPV Immature Gran % Neutrophils % Lymphocytes % Monocytes % Eosinophils % Basophils % Nucleated RBC % Absolute Neutrophils Absolute Lymphocytes Absolute Monocytes Absolute Eosinophils Absolute Basophils ESR PT 9.9 INR 1.0 APTT 21.9 Sodium Potassium Chloride Carbon Dioxide Anion Gap BUN Creatinine Estimated GFR/1.73 m2 Glucose Hemoglobin A1c 6.1 H Calcium Magnesium Total Bilirubin AST ALT Alkaline Phosphatase Troponin I 0.07 H Total Protein Albumin Triglycerides Total Cholesterol LDL Cholesterol, Calc HDL Cholesterol COVID-19 Source SARS-CoV-2 (PCR) Influenza Type A (PCR) Influenza Type B (PCR) RSV (PCR) 07/28/20 07/28/20 22:45 22:45 WBC 7.75 RBC 4.93 Hgb 14.8 Hct 43.0 MCV 87.2 MCH 30.0 MCHC 34.4 RDW 12.3 Plt Count 181 MPV 11.0 Immature Gran % 0.4 Neutrophils % 63.8 Lymphocytes % 24.5 Monocytes % 9.5 Eosinophils % 1.3 Basophils % 0.5 Nucleated RBC % 0 Absolute Neutrophils 4.94 Absolute Lymphocytes 1.90 Absolute Monocytes 0.74 Absolute Eosinophils 0.10 Absolute Basophils 0.04 ESR PT INR APTT Sodium 140 Potassium 3.4 L Chloride 103 Carbon Dioxide 26.3 Anion Gap 10.7 BUN 12 Creatinine 1.2 Estimated GFR/1.73 m2 >= 60.00 Glucose 222 H Hemoglobin A1c Calcium 8.7 Magnesium 1.8 Total Bilirubin 0.2 AST 19 ALT 41 Alkaline Phosphatase 97 Troponin I < 0.05 Total Protein 7.4 Albumin 3.7 Triglycerides Total Cholesterol LDL Cholesterol, Calc HDL Cholesterol COVID-19 Source SARS-CoV-2 (PCR) Influenza Type A (PCR) Influenza Type B (PCR) RSV (PCR) [facility] Medical History HTN (hypertension) Peripheral vascular disease Family History (Updated 07/29/20 @ 07:15 by Keon Cobos) Sister Diabetes Social History Smoking/Tobacco Use Status: Never Smoking risk assessment performed?: Yes Alcohol Intake: current Alcohol Intake frequency: 0-2 drinks per day Substance use type: does not use Do you feel safe at home: Yes Do you feel safe in your relationship?: Yes
[2020-07-29] MEDS: amLODIPine 10 MG TAB PO (21:45)
[2020-07-30] VITALS (9 sets, daily range): BP systolic 116–134; BP diastolic 64–87; PULSE 53–76; RESP 10–17; TEMP 36.5–37.2; O2SAT 98
[2020-07-30 00:59] LABS: Potassium 3.7 mmol/L (3.5-5.1)
[2020-07-30 01:16] LABS: PTT Activated 53.9 sec (21.0-27.5)
[2020-07-30] MEDS: Normal Saline 500 ML 50 ML IV (01:40)
[2020-07-30 07:00] LABS: PTT Activated 55.2 sec (21.0-27.5)
[2020-07-30 07:09] LABS: Anion Gap 8.6 mmol/L (3-11); BUN 10 mg/dL (7-18); CO2 26.4 mmol/L (21.0-32.0); CREATININE 1.1 mg/dL (0.70-1.30); Calcium 8.6 mg/dL (8.5-10.1); Chloride 105 mmol/L (98-107); Glucose 133 mg/dL (74-106); Potassium 3.8 mmol/L (3.5-5.1); Sodium 140 mmol/L (136-145)
[2020-07-30] MEDS: Pantoprazole 40 MG TABCR PO (08:07)
[2020-07-30] MEDS: Aspirin E.C. 81 MG TABEC PO (08:08)
[2020-07-30] MEDS: Metoprolol 25 MG TAB PO (08:08)
[2020-07-30] MEDS: Clopidogrel 75 MG TAB PO (08:08)
== END 2020-07-30 08:15 | disposition short-term general hospital (02) | DRG 311 ==
LOC: ER 07-29 06:23 → ICU 07-29 07:00
PROVIDERS: Family Medicine; Internal Medicine; Physician Assistant; Admitting Provider Internal Medicine; Emergency Provider Emergency Medicine; Visit Provider Internal Medicine
DX: I24.9 Acute ischemic heart disease, unspecified (principal); Z68.41 Body mass index [BMI] 40.0-44.9, adult; E78.1 Pure hyperglyceridemia; I10 Essential (primary) hypertension; R73.9 Hyperglycemia, unspecified; I45.10 Unspecified right bundle-branch block; I73.9 Peripheral vascular disease, unspecified; E66.9 Obesity, unspecified
CPT/HCPCS: 36415; 80048; 80053; 80061; 85652; 93005; 96365; 99223; 99233; 99239; 99285; 71046; 83036; 83735; 84132; 84484; 85025; 85610; 85730; 93010

== ENCOUNTER 2020-10-04 11:11 | Outpatient (CLI) | payer OTHER, SELFPAY ==
--- NOTE | 2020-10-04 11:00 | RT.EKG_ITS ---
APPROVED REPORT Exam: Resting ECG Patient Location: O HR:62 bpm ECG Measurements Heart Rate 62 AXIS AZ 170 P 20 QRSd 114 QRS -15 QT 414 T 6 QTc 421 Conclusion Sinus rhythm...normal P axis, V-rate 50- 99 Left ventricular hypertrophy...multiple voltage criteria
== END 2020-10-04 11:12 | disposition home or self-care (01) ==
LOC: DI.CARD 11:11
PROVIDERS: PCP Family Medicine; Visit Provider Internal Medicine Cardiovascular Disease
DX: I24.9 Acute ischemic heart disease, unspecified (principal); I10 Essential (primary) hypertension
CPT/HCPCS: 93010

== ENCOUNTER 2020-10-04 12:04 | Outpatient (REF) | payer OTHER, SELFPAY ==
[2020-10-04 17:10] LABS: BUN 10 mg/dL (7-18); CREATININE 1.1 mg/dL (0.70-1.30); Calcium 8.7 mg/dL (8.5-10.1); Calculated LDL 44 mg/dL (<100); Chloride 107 mmol/L (98-107); Cholesterol 98 mg/dL (<200); Glucose 111 mg/dL (74-106); HDL Cholesterol 43 mg/dL (40-60); Potassium 4.5 mmol/L (3.5-5.1); Sodium 142 mmol/L (136-145); Triglyceride 55 mg/dL (<150)
== END 2020-10-04 12:05 | disposition home or self-care (01) ==
LOC: NCHCN 12:04
PROVIDERS: PCP Family Medicine; Visit Provider Family Medicine
DX: R73.03 Prediabetes (principal); I10 Essential (primary) hypertension; E78.5 Hyperlipidemia, unspecified
CPT/HCPCS: 80048; 80061

== ENCOUNTER 2020-10-08 08:00 | Outpatient (RCR) | payer OTHER, SELFPAY | END 2020-10-08 23:59 | disposition home or self-care (01) | LOC: CR 08:00 | PROVIDERS: Visit Provider Family Medicine | DX: I25.2 Old myocardial infarction (principal); Z51.89 Encounter for other specified aftercare | CPT/HCPCS: S9472 ==

== ENCOUNTER 2020-11-05 08:00 | Outpatient (RCR) | payer OTHER, SELFPAY | END 2020-11-08 23:59 | disposition home or self-care (01) | LOC: CR 08:00 | PROVIDERS: PCP Family Medicine; Visit Provider Family Medicine | DX: Z51.89 Encounter for other specified aftercare (principal); I25.2 Old myocardial infarction | CPT/HCPCS: S9472 ==

== ENCOUNTER 2020-11-07 17:41 | Outpatient (RCR) | payer OTHER, SELFPAY | END 2020-11-08 23:59 | disposition home or self-care (01) | LOC: CR 17:41 | PROVIDERS: PCP Family Medicine; Visit Provider Family Medicine | DX: R69 Illness, unspecified (principal) ==

== ENCOUNTER 2020-12-01 08:00 | Outpatient (RCR) | payer OTHER, SELFPAY | END 2020-12-08 23:59 | disposition home or self-care (01) | LOC: CR 08:00 | PROVIDERS: PCP Family Medicine; Visit Provider Family Medicine | DX: Z51.89 Encounter for other specified aftercare (principal); I25.2 Old myocardial infarction | CPT/HCPCS: S9472 ==

== ENCOUNTER 2020-12-14 02:34 | Outpatient (CLI) | payer OTHER, SELFPAY ==
--- NOTE | 2020-12-14 09:00 | ETT_ITS ---
APPROVED REPORT Exam: Exercise Treadmill Patient Location: Out-Patient Room/Bed: Stress Nurse: Keena Ba RN Ordering Provider:BRYAN GODWIN, Contact Number: [phone] BMI: 37.29 Baseline Rhythm: Sinus Rhythm Comment: Incomplete RBBB, flipped T waves lead III Indications: Acute coronary syndrome, acute ischemic heart disease Medical History Medical History: Hypertension, hyperlipidemia, obesity, NSTEMI, CAD Cardiac Medications: Losartan, clopidogrel, atorvastatin, aspirin, amlodipine Allergies: NKA Cardiac Risk Factors: Hypertension, hyperlipidemia, obesity, CVD, family hx Previous Cardiac Procedures: NSTEMI w/ LHC, no stents Pretest Chest Pain Characteristics: None Exercise History: Physically active Physical Disabilities: None Lung Sounds: Clear to auscultation Heart Sounds: Regular Stress Test Details Test: Exercise stress testing was performed using a Gian protocol. Rest Stress HR Resting HR Supine: 63 bpm Max Heart Rate (APMHR): 162 bpm Resting HR Standin bpm Target HR (85% APMHR): 137 bpm Max HR Achieved: 162 bpm % of APMHR: 100 Recovery HR: 98 bpm HR response to stress: Normal HR response to stress BP Resting BP Supine: 126/82 mmHg Resting BP Standin/80 mmHg Max BP: 180/76 mmHg Recovery BP: 128/82 mmHg BP response to stress: Normal blood pressure response to stress. ECG Resting ECG: Sinus Rhythm, incomplete RBBB Ectopy: None Comment: Flipped T waves lead III Stress ECG: Sinus Tachycardia ST Change: No significant ST segment changes noted Arrhythmia: Frequent PVCs Recovery ECG: Sinus Rhythm Recovery ST Change: No significant ST segment changes noted Recovery Arrhythmia: None Clinical Reason for Termination: Dyspnea Stress Symptoms: Dyspnea, General Fatigue Exercise duration: 12 min16 sec Highest Stage Reached: Stage 5: 5.0 mph at 18% grade. Exercise capacity: 13.65 METs [place] Treadmill Score: 11 Rate Pressure Product: [id number] Stress ECG Conclusion 1. The patient exercised for 12 minutes (14 METS). Exercise was stopped due to dyspnea. 2. Patient's blood pressure and heart augmented appropriately. 3. The patient had baseline T wave abnormalities in lead III which decreases the sensitivity of inter pretation. 4. The patient had no evidence of ischemia on the ECG portion of the exam. [place] Treadmill Score is 11 which is Low risk. Stress Test Summary STAGE Time (mins) Speed (mph) Grade (%) HR BP SYMPTOMS METS Supine 63 126/82 Standing 75 128/80 SpO2 96% 1 3 1.7 10 98 128/82 SpO2 96% 4.6 2 6 2.5 12 115 140/78 SpO2 95% 7 3 9 3.4 14 135 162/74 SpO2 94% 10.2 4 12 4.2 16 160 SpO2 89%, moderate dyspnea 12.9 1 min recovery 143 180/76 dyspnea resolved, SpO2 98% 3 min recovery 109 158/74 6 min recovery 98 128/82
== END 2020-12-14 02:54 ==
PROVIDERS: PCP Family Medicine; Visit Provider Internal Medicine Cardiovascular Disease
DX: I24.9 Acute ischemic heart disease, unspecified (principal); I45.10 Unspecified right bundle-branch block; I10 Essential (primary) hypertension; E78.5 Hyperlipidemia, unspecified; E66.9 Obesity, unspecified; Z68.37 Body mass index [BMI] 37.0-37.9, adult; I25.10 Atherosclerotic heart disease of native coronary artery without angina pectoris; Z82.49 Family history of ischemic heart disease and other diseases of the circulatory system; I25.2 Old myocardial infarction; I49.3 Ventricular premature depolarization
CPT/HCPCS: 93017

== ENCOUNTER → 2021-03-22 00:59 | Outpatient (CLI) | payer OTHER, SELFPAY ==
--- NOTE | 2021-03-22 | DI.MRI_ITS ---
Exam(s) MR CERVICAL SPINE WO EXAM: MR CERVICAL SPINE WO CLINICAL HISTORY: CERVICAL8 RADICULOPATHY,M54.12,NECK/UPPER BACK PAIN WITH RADIATION DOWN ARM TECHNIQUE: Multiplanar multisequence MRI of the cervical spine was performed without intravenous con trast. COMPARISON: CR,XR XR CHEST 2V PA LATERAL from 07/28/2020 FINDINGS: CERVICOMEDULLARY JUNCTION: Intact with no evidence of cerebellar tonsillar ectopia. No obvious abnor mality of the odontoid process. No evidence of Chiari 1 malformation. CERVICAL SPINAL CORD: There is no abnormal signal in the cervical spinal cord and no evidence of foca l cord atrophy nor focal cord swelling. OSSEOUS:There are no cervical fractures evident. However, there is an area of signal abnormality in the C4 vertebral body extending from the superior to inferior endplates and occupying a large part of this vertebral body but nonexpansile. This does not exhibit signal characteristics typical of a waldemar ign hemangioma and may possibly be neoplastic. There are no other similar findings in the other visu alized vertebral bodies which on this study are imaged down to lower T3 level. INDIVIDUAL LEVELS: C2-3: No disc herniation nor central canal stenosis. No foraminal stenosis. Moderate arthropathy in the right facet. Left facet unremarkable. No foraminal stenosis C3-4: Normal disc height and signal.There is a slightly right of center disc protrusion which extends posteriorly 3 Millimeters and is approximately 7 millimeters wide. This impresses the thecal sac b ut not the spinal cord. There is no true central spinal canal stenosis at this level PICC. The disc herniation does not extend into the exiting neural foramina. There are mild-moderate degenerative c hanges in the left facet joint and mild degenerative changes in the right facet joint at this level. C4-5: No disc herniation nor central canal stenosis.No facet arthropathy. No foraminal stenosis C5-6: This level exhibits mild disc space narrowing and anterior osseous lipping. Posteriorly there is annular bulging, more so on the right side. Mild impression upon the thecal sac but not the spina l cord at this level. Mild right-sided foraminal stenosis and milder left-sided foraminal stenosis. Minimal facet degenerative changes. C6-7: Preserved disc height. Annular bulging at this level, more so on the left side. Central canal dimensions are lower normal. Mild bilateral foraminal narrowing. No prominent Luschka joint osteop hytes. C7-T1: No disc herniation nor central canal stenosis. No facet arthropathy.No foraminal stenosis. IMPRESSION: 1. Multilevel mild protrusions as described above. At C3-4 level there is a right paracentral disc p rotrusion which extends posteriorly 3 millimeters and is approximately 7 millimeters wide, indenting the thecal sac but not the actual spinal cord. There is no abnormal signal in the cord at this level nor elsewhere in the cervical spinal cord. There is also no evidence of focal cord atrophy nor foca l cord swelling. 2. There is a prominent area of signal abnormality occupying most of the C4 vertebral body which is h ypointense on T1 and bright on both T2 and STIR sequences. Therefore this does not have the signal c haracteristics of a typical hemangioma and possibility of more concerning bone pathology such as meta static lesion or other neoplasm is a consideration. This finding is not expansile and does not breac h of the endplates and is not associated with a paraspinal mass. Recommend follow-up nuclear bone sc an. This should be a whole body nuclear bone scan to determine both of this exhibits normal uptake o f radiopharmaceutical and if there are other areas of abnormal uptake in the skeleton. DATA REPOSITORY:
== END ==
PROVIDERS: PCP Family Medicine; Visit Provider Family Medicine
DX: M54.12 Radiculopathy, cervical region (principal); M50.21 Other cervical disc displacement, high cervical region
CPT/HCPCS: 72141

== ENCOUNTER 2021-04-06 02:13 | Outpatient (CLI) | payer OTHER, SELFPAY ==
--- NOTE | 2021-04-06 10:30 | DI.NM_ITS ---
Exam(s) NM BONE SCAN WHOLE BODY GRP EXAM: NM BONE SCAN WHOLE BODY GRP CLINICAL HISTORY: F/U C 4 BONE LESION ON MRI,M89.9. TECHNIQUE: Injected Dose: 25 mCi Tc-99m MDP Delayed Images: 2-3 hours. COMPARISON: MR MR CERVICAL SPINE WO from 03/22/2021 MR MR CERVICAL SPINE WO from 03/22/2021 FINDINGS: There is no abnormal uptake seen in the C3 vertebral body to suggest the presence of an aggressive deandre ne lesion at this level and there is no abnormal focal uptake seen elsewhere in the skeleton to sugge st the presence of an aggressive bone lesion elsewhere. There is photopenic zone the left knee consistent with the presence of a prosthesis. Slight increase d uptake in the left knee tibial plateau noted. This may indicate an element of loosening. Both kidneys excrete radiopharmaceutical in normal fashion. IMPRESSION: 1. No abnormal uptake in the C4 vertebral body nor elsewhere in the skeleton to suggest osseous neopl astic disease 2. Left knee prosthesis with some mild increased radiopharmaceutical uptake around the tibial compon ent. Correlation with any clinical signs of loosening of the ceases is recommended. DATA REPOSITORY:
== END 2021-04-06 02:33 ==
PROVIDERS: PCP Family Medicine; Visit Provider Family Medicine
DX: M89.9 Disorder of bone, unspecified (principal); Z96.652 Presence of left artificial knee joint
CPT/HCPCS: 78306

== ENCOUNTER 2021-06-28 02:27 | Outpatient (CLI) | payer OTHER, SELFPAY ==
[2021-06-28 13:03] LABS: Calculated LDL 43 mg/dL (<100); Cholesterol 114 mg/dL (<200); HDL Cholesterol 59 mg/dL (40-60); Triglyceride 62 mg/dL (<150)
[2021-07-01 16:36] LABS: Lab Add On Test DONE
[2021-07-01 16:44] LABS: Anion Gap 8.4 mmol/L (3-11); CO2 27.6 mmol/L (21.0-32.0); Chloride 103 mmol/L (98-107); Potassium 4.2 mmol/L (3.5-5.1); Sodium 139 mmol/L (136-145)
== END 2021-06-28 02:28 | disposition home or self-care (01) ==
LOC: LBO 02:28
PROVIDERS: PCP Family Medicine; Visit Provider Internal Medicine Cardiovascular Disease
DX: E78.1 Pure hyperglyceridemia (principal); I10 Essential (primary) hypertension; I24.9 Acute ischemic heart disease, unspecified; I25.10 Atherosclerotic heart disease of native coronary artery without angina pectoris; R73.09 Other abnormal glucose
CPT/HCPCS: 36415; 80051; 80061

== ENCOUNTER 2021-08-31 13:33 | Outpatient (REF) | payer OTHER, SELFPAY ==
[2021-08-31 14:49] LABS: BUN 10 mg/dL (7-18); CREATININE 0.9 mg/dL (0.70-1.30); Calcium 8.7 mg/dL (8.5-10.1); Chloride 105 mmol/L (98-107); Glucose 107 mg/dL (74-106); Potassium 4.3 mmol/L (3.5-5.1); Sodium 140 mmol/L (136-145)
== END 2021-08-31 13:34 | disposition home or self-care (01) ==
LOC: NCHCN 13:33
PROVIDERS: PCP Family Medicine; Visit Provider Family Medicine
DX: Z00.00 Encounter for general adult medical examination without abnormal findings (principal); I10 Essential (primary) hypertension; E78.5 Hyperlipidemia, unspecified
CPT/HCPCS: 80048

== ENCOUNTER 2022-09-11 16:26 | Outpatient (REF) | payer OTHER, SELFPAY ==
[2022-09-11 17:11] LABS: Anion Gap 7.9 mmol/L (3-11); BUN 15 mg/dL (7-18); CO2 26.1 mmol/L (21.0-32.0); CREATININE 1.1 mg/dL (0.70-1.30); Chloride 103 mmol/L (98-107); Estimated GFR 76.85 (mL/min/1.73m2); Glucose 112 mg/dL (74-106); Potassium 4.2 mmol/L (3.5-5.1); Sodium 137 mmol/L (136-145)
[2022-09-11 17:43] LABS: Hemoglobin A1C 5.9 % (<5.7)
== END 2022-09-11 16:27 | disposition home or self-care (01) ==
LOC: NCHCN 16:26
PROVIDERS: PCP Family Medicine; Visit Provider Family Medicine
DX: I10 Essential (primary) hypertension (principal); R73.03 Prediabetes
CPT/HCPCS: 80048; 83036

== ENCOUNTER 2023-06-15 10:08 | Outpatient (CLI) | payer OTHER, SELFPAY ==
--- NOTE | 2023-06-15 10:00 | RT.EKG_ITS ---
APPROVED REPORT Exam: Resting ECG Reason for Exam: follow up Patient Location: O HR:73 bpm ECG Measurements Heart Rate 73 AXIS NH 180 P 13 QRSd 111 QRS -16 QT 395 T 14 QTc 436 Conclusion Sinus rhythm...normal P axis, V-rate 50- 99 Sinus pause...long R-R interval, normal QRSd Left ventricular hypertrophy...multiple voltage criteria I have reviewed and interpreted ECG and agree with software generated interpretation.
== END 2023-06-15 10:09 | disposition home or self-care (01) ==
LOC: DI.CARD 10:09
PROVIDERS: PCP Family Medicine; Visit Provider Internal Medicine Interventional Cardiology
DX: I25.10 Atherosclerotic heart disease of native coronary artery without angina pectoris (principal)
CPT/HCPCS: 93010

== ENCOUNTER 2023-09-14 13:20 | Outpatient (REF) | payer OTHER, SELFPAY ==
[2023-09-14 15:55] LABS: ALT 53 U/L (16-63); AST 22 U/L (15-37); Alkaline Phosphatase 87 U/L (46-116); Anion Gap 12.7 mmol/L (3-11); BUN 15 mg/dL (7-18); Bilirubin, Total 0.6 mg/dL (0.2-1.0); CO2 23.3 mmol/L (21.0-32.0); Calcium 8.7 mg/dL (8.5-10.1); Calculated LDL 51 mg/dL (<100); Chloride 105 mmol/L (98-107); Cholesterol 110 mg/dL (<200); Estimated GFR 85.63 (mL/min/1.73m2); Glucose 108 mg/dL (74-106); HDL Cholesterol 44 mg/dL (40-60); Potassium 4.1 mmol/L (3.5-5.1); Sodium 141 mmol/L (136-145); Total Protein 7.2 g/dL (6.4-8.2); Triglyceride 79 mg/dL (<150)
== END 2023-09-14 13:21 | disposition home or self-care (01) ==
LOC: NCHCN 13:20
PROVIDERS: PCP Family Medicine; Visit Provider Family Medicine
DX: E78.5 Hyperlipidemia, unspecified (principal); R73.03 Prediabetes; I10 Essential (primary) hypertension
CPT/HCPCS: 80053; 80061; 83036

== ENCOUNTER 2024-10-28 14:14 | Outpatient (CLI) | payer OTHER, SELFPAY ==
[2024-10-28 17:05] LABS: Calculated LDL 66 mg/dL (<100); Cholesterol 139 mg/dL (<200); HDL Cholesterol 47 mg/dL (>or=40); Triglyceride 131 mg/dL (<150)
== END 2024-10-28 14:15 | disposition home or self-care (01) ==
LOC: LBO 14:15
PROVIDERS: PCP Student in an Organized Health Care Education/Training Program; Visit Provider Internal Medicine Cardiovascular Disease
DX: I25.10 Atherosclerotic heart disease of native coronary artery without angina pectoris (principal)
CPT/HCPCS: 36415; 80061

== ENCOUNTER 2024-11-07 14:03 | Outpatient (REF) | payer OTHER, SELFPAY ==
[2024-11-07 15:50] LABS: ALT 49 U/L (16-63); AST 25 U/L (15-37); Alkaline Phosphatase 94 U/L (46-116); Anion Gap 8.5 mmol/L (3-11); BUN 15 mg/dL (7-18); Bilirubin, Total 0.3 mg/dL (0.2-1.0); CO2 25.5 mmol/L (21.0-32.0); CREATININE 0.9 mg/dL (0.70-1.30); Calcium 9.1 mg/dL (8.5-10.1); Chloride 106 mmol/L (98-107); Estimated GFR 96.57 (mL/min/1.73m2); Glucose 136 mg/dL (74-106); Potassium 4.3 mmol/L (3.5-5.1); Sodium 140 mmol/L (136-145); Total Protein 7.2 g/dL (6.4-8.2)
== END 2024-11-07 14:04 | disposition home or self-care (01) ==
LOC: NCHCN 14:03
PROVIDERS: PCP Student in an Organized Health Care Education/Training Program; Visit Provider Student in an Organized Health Care Education/Training Program
DX: I10 Essential (primary) hypertension (principal)
CPT/HCPCS: 80053

== ENCOUNTER 2025-04-24 08:59 | Day surgery (SDC) | payer OTHER, SELFPAY ==
--- NOTE | 2025-04-23 15:28 | W.PM.DSUDISC ---
Date of service: 04/24/25 Discharge Plan Disposition Patient Disposition: Home Condition: Good Discharge Details Reason For Visit: Screening colonoscopy Attending Provider: Mike Franco Primary Care Provider: Jose A Cali Home Meds and New Rx's Prescriptions: Continued nitroglycerin 0.4 mg tablet, sublingual 0.4 mg sublingual Q5M PRN (Reason: chest pain) Qty: 14 12RF Rx Instructions: do not exceed 3 doses per episode One-A-Day Men's 50 Plus(vit K) 400-20-370 mcg tablet 1 tab PO DAILY atorvastatin 40 mg tablet 80 mg PO DAILY Metamucil 3.4 gram/5.4 gram powder 1 tbsp PO DAILY Rx Instructions: mix into at least 8 oz of water or juice before administering olmesartan 20 mg tablet 20 mg PO DAILY aspirin 81 mg Tablet,Delayed Release (Dr/Ec) 81 mg PO DAILY AM amlodipine 5 mg tablet 5 mg PO HS Discontinued bisacodyl [Dulcolax (bisacodyl)] 5 mg tablet,delayed release (DR/EC) 5 mg PO ONCE Qty: 4 0RF Rx Instructions: Take per colonoscopy instructions provided by ordering providers office polyethylene glycol 3350 17 gram/dose powder 17 g PO ONCE Qty: 238 0RF Rx Instructions: Take per colonoscopy instructions provided by ordering providers office Discharge Instructions Instructions: Colon polyps Additional Instructions: Juan, it was nice to meet you today, and I hope you feel well after the procedure. Things went very smoothly. I did find, and removed, 3 polyps today. These are small in size, none of the features are particularly worrisome to the naked eye. Will take a week or 2 to get the results of this, but once my office has those, we will be in touch with recommendations for future colonoscopies. If you need anything or have any questions, please do not hesitate to ask. 1. If tolerated, consume a soft, low fiber diet for 1-2 days. 2[address] Do not drive, drink alcohol, operate machinery, make critical decisions, or do activities that require coordination or balance for 24 hours. 3. Because air was put into your colon during the procedure, expelling air from your rectum (passing gas or farting) is normal. 4. You may not have a bowel movement for 1-3 days because of the colonoscopy prep. This is normal. 5. Go directly to the emergency room if you notice any of the following: Develop chills (warm to touch), or if you have a thermometer and your temperature is above 101 Difficulty breathing or difficultly swallowing Persistent vomiting Severe abdominal pain, other than gas cramps Severe chest pain Black, tarry stools Any bleeding – exceeding one tablespoon 6. Call your physician if the site where your intravenous was started becomes red, swollen, painful, and warm to touch. 7. Your physician has reviewed your pre-procedure medications. Please continue to take those medications as previously ordered. You will be given specific information/education regarding any changes to your medications before leaving. Stand Alone Forms: Anesthesia Discharge Inst., Amy Michelle (DSU), Portal Information Activity:: Activity as Tolerated Diet:: As Tolerated Discharge Orders Discharge Orders: Discharge Order (Routine); Ordered 04/23/25 Ordered By: Mike Franco DS: Diagnosis Discharge Diagnosis (1) Encounter for screening colonoscopy: Status: Acute Asessment and Plan: Follow-up on polypectomy results
--- NOTE | 2025-04-23 15:50 | W.COLOREPORT ---
Date of service: 04/24/25 Time of Service: 11:40 Colonoscopy Report Date of procedure: 04/24/25 Pre-op diagnosis general: Screening colonoscopy Post-op diagnosis procedure note: other (Colon polyps) Procedure: Colonoscopy with polypectomy Surgeon: Mike Franco Anesthesia Type: General:No Airway Estimated blood loss (mL): 5 Pathology: other (0.25 cm flat cecal polyp, 0.5 cm flat ascending colon polyp, 0.25 cm flat polyp at 25 cm) Complications: None Disposition: same day Indications: Pranay is a 65-year-old male who needs his next screening colonoscopy Prep: Miralax/Dulcolax Procedure Start Time: 11:10 Procedure End Time: 11:27 Retraction Time: 13 Findings: 0.25 cm flat cecal polyp, 0.5 cm flat ascending colon polyp, 0.25 cm flat polyp at 25 cm Procedure Description: After the induction of anesthesia, and with Juan in left lateral decubitus position, I began by performing an external anorectal exam. Perineum and skin were normal, as was the anal verge. There was no evidence of external hemorrhoids. Next, I performed a digital rectal exam. I did not appreciate any abnormal findings. Next, I advanced a colonoscope into the rectal vault. I performed retroflexion. This appeared normal. Using irrigation, I then advanced the colonoscope beyond the rectal folds and into the sigmoid colon before advancing towards the cecum. The scope was noted to be in the cecum by identification of the ileocecal valve and appendiceal orifice. A few millimeters away from the appendiceal orifice was a 0.25 cm flat polyp. This was removed with cold forceps without any issues. Another polyp was found in the ascending colon. This was approximately 0.5 cm, and it was mostly flat. This was removed with cold snare polypectomy. There was minimal bleeding from the site as well. I then began withdrawing the colonoscope using repeated irrigation as necessary for full evaluation of the colonic mucosa. Around 25 cm from the anal verge was 1 another polyp. This was also about 0.25 cm and flat. This was removed with cold forceps. Once the scope was withdrawn to the level of the rectum, great care was taken to examine portions of the rectal folds. Finally, the scope was withdrawn and the patient was brought to the same-day surgery recovery unit as the anesthetic wore off. The findings and instructions were shared with the patient prior to discharge. [place] Bowel Prep [place] Bowel Prep Right Colon: 3 Left Colon: 3 Transverse Colon: 3 Total Score: 9
[2025-04-24 09:42] VITALS: BP 150/114; PULSE 88; RESP 16; TEMP 36.7; O2SAT 96
[2025-04-24] MEDS: Lactated Ringers 1,000 ML 80 ML IV (10:00)
--- NOTE | 2025-04-24 10:50 | W.ANESPRE ---
General Info Date of Service Date Performed: 04/24/25 Height: 6 ft 1 in Weight: 151.9 kg Body Mass Index (BMI): 44.1 Surgical Procedure: Operation Date: 04/24/25 10:50 Proposed Procedure Side Surgeon p Colonoscopy Mike Franco MD Actual Procedure Side Surgeon p Colonoscopy Not Applicable Mike Franco MD Pre-Op Diagnosis Post-Op Diagnosis Screening colonoscopy Meds Allergies and Home Medications Allergies Allergy/AdvReac Type Severity Reaction Status Date / Time lisinopril AdvReac Unknown cough Verified 04/24/25 09:39 Home Medication Medication Instructions Recorded aspirin 81 mg tablet,delayed 81 mg PO DAILY AM 07/28/20 release cvqauryavihx-jzl-kreud acid-vit 1 tab PO DAILY 09/24/20 K-lycop 400 mcg-20 mcg-370 mcg tablet (One-A-Day Men's 50 Plus (with vitamin K)) nitroglycerin 0.4 mg sublingual 0.4 mg sublingual Q5M PRN chest 10/07/20 tablet pain #14 tabs amlodipine 5 mg tablet 5 mg PO HS 06/16/22 atorvastatin 40 mg tablet 80 mg PO DAILY 06/16/22 psyllium husk 3.4 gram/5.4 gram 1 tbsp PO DAILY 06/16/22 oral powder (Metamucil) olmesartan 20 mg tablet 20 mg PO DAILY 11/18/24 Current Visit Medications: Current Medications Generic Name Dose Route Start Last Admin Trade Name Freq PRN Reason Stop Dose Admin Ringer's Solution 1,000 mls @ 80 mls/hr 04/24/25 06:00 04/24/25 10:00 IV 04/24/25 23:59 80 mls/hr INFUSION LYLA Administration IV Miscellaneous Supplies 1 each 04/24/25 06:00 Iv Access IV 04/24/25 23:59 DIRECTED LYLA Sodium Chloride 0 ml 04/24/25 06:00 Normal Saline Flush 10 Ml Syr IV 04/24/25 23:59 PRN PRN Sodium Chloride 0 ml 04/24/25 06:00 Normal Saline 10 Ml Vial IJ 04/24/25 23:59 DIRECTED PRN Sterile Water 0 ml 04/24/25 06:00 Water,Injection,Sterile 10 Ml Vial IJ 04/24/25 23:59 DIRECTED PRN PFSH Active Problems Active Problems: Problem Status Onset Code Encounter for screening colonoscopy Acute Z12.11 Coronary artery disease Chronic I25.10 Trigger thumb, left thumb Acute M65.312 Hypertriglyceridemia Acute E78.1 Impaired glucose regulation Acute R73.09 ACS (acute coronary syndrome) Acute I24.9 HTN (hypertension) Chronic I10 Medical History Medical History Peripheral vascular disease Surgical History Surgical History History of left knee replacement History of shoulder surgery History of arthroplasty of right knee History of cardiac cath Tobacco Smoking/Tobacco Use Status: Never Alcohol Alcohol Intake: current Alcohol intake frequency: 0-2 drinks per day Substance Use Substance use type: does not use Vital Signs and Lab Results Vital Signs Most Recent Vital Signs in EMR: Most Recent Vital Signs Temp Pulse Resp BP Pulse Ox 36.7 C 88 16 150/114 H 96 04/24/25 09:42 04/24/25 09:42 04/24/25 09:42 04/24/25 09:42 04/24/25 09:42 Imaging and Studies Imaging and Studies Study information below may be from another EMR and interpreted by another provider. Please see original notes in EMR for more complete details. EKG Summary: EKG PATIENT NAME: Juan Palmer Jr UNIT #: [id number] ORDERING PROVIDER: Shirley Parkinson M.D. PRIMARY CARE PROVIDER: MARJORIE KEEN MD DATE/TIME OF SERVICE: 06/15/23 1006 : 1960 PERFORMING LOCATION: [facility] APPROVED REPORT Exam: Resting ECG Reason for Exam: follow up Patient Location: O HR:73 bpm ECG Measurements Heart Rate 73 AXIS SC 180 P 13 QRSd 111 QRS -16 QT 395 T14 QTc 436 Conclusion Sinus rhythm...normal P axis, V-rate 50- 99 Sinus pause...long R-R interval, normal QRSd Left ventricular hypertrophy...multiple voltage criteria I have reviewed and interpreted ECG and agree with software generated interpretation. <Electronically signed by Shirley Parkinson M.D. in [place]> E-Sign Date: 06/15/23 E-Sign Time: 1616 Stress Test Summary: STRESS TEST PATIENT NAME: Juan Palmer Jr UNIT #: [id number] ORDERING PROVIDER: Bryan Godwin M.D. PRIMARY CARE PROVIDER: MARJORIE KEEN MD DATE/TIME OF SERVICE: 12/14/20 ADMITTING PROVIDER: BRYAN GODWIN MD : 1960 APPROVED REPORT Exam: Exercise Treadmill Patient Location: Out-Patient Room/Bed: Stress Nurse: Keena Ba RN Ordering Provider:BRYAN GODWIN, Contact Number: [phone] BMI: 37.29 Baseline Rhythm: Sinus Rhythm Comment: Incomplete RBBB, flipped T waves lead III Indications: Acute coronary syndrome, acute ischemic heart disease Medical History Medical History: Hypertension, hyperlipidemia, obesity, NSTEMI, CAD Cardiac Medications: Losartan, clopidogrel, atorvastatin, aspirin, amlodipine Allergies: NKA Cardiac Risk Factors: Hypertension, hyperlipidemia, obesity, CVD, family hx Previous Cardiac Procedures: NSTEMI w/ LHC, no stents Pretest Chest Pain Characteristics: None Exercise History: Physically active Physical Disabilities: None Lung Sounds: Clear to auscultation Heart Sounds: Regular Stress Test Details Test: Exercise stress testing was performed using a Gian protocol. Rest Stress HR Resting HR Supine: 63 bpmMax Heart Rate (APMHR): 162 bpm Resting HR Standin bpmTarget HR (85% APMHR): 137 bpm Max HR Achieved: 162 bpm % of APMHR: 100 Recovery HR: 98 bpm HR response to stress: Normal HR response to stress BP Resting BP Supine: 126/82 mmHg Resting BP Standin/80 mmHg Max BP: 180/76 mmHg Recovery BP: 128/82 mmHg BP response to stress: Normal blood pressure response to stress. ECG Resting ECG: Sinus Rhythm, incomplete RBBB Ectopy: None Comment: Flipped T waves lead III Stress ECG: Sinus Tachycardia ST Change: No significant ST segment changes noted Arrhythmia: Frequent PVCs Recovery ECG: Sinus Rhythm Recovery ST Change: No significant ST segment changes noted Recovery Arrhythmia: None Clinical Reason for Termination: Dyspnea Stress Symptoms: Dyspnea, General Fatigue Exercise duration: 12 min16 sec Highest Stage Reached: Stage 5: 5.0 mph at 18% grade. Exercise capacity: 13.65 METs [place] Treadmill Score: 11 Rate Pressure Product: 34620 Stress ECG Conclusion 1. The patient exercised for 12 minutes (14 METS). Exercise was stopped due to dyspnea. 2. Patient's blood pressure and heart augmented appropriately. 3. The patient had baseline T wave abnormalities in lead III which decreases the sensitivity of interpretation. 4. The patient had no evidence of ischemia on the ECG portion of the exam. [place] Treadmill Score is 11 which is Low risk. Stress Test Summary STAGETime (mins)Speed (mph)Grade (%)HRBPSYMPTOMSMETS Eqwmto48780/82 Rigxgjbj20049/80SpO2 96% 131.03278449/82SpO2 96%4.6 262.984675155/78SpO2 95%7 393.406622013/74SpO2 94%10.2 4124.629430BoP3 89%, moderate sxgpcfi70.9 1 min [id number]/76dyspnea resolved, SpO2 98% 3 min [id number]/74 6 min oyrdqwxv73826/82 Dictated by: BRYAN GODWIN MD Dictated:: 12/14/20 0954 <Electronically signed by Bryan Godwin M.D. in [place]> 12/14/20 1139 Transcribed Date: Transcribed Time: By: ALOK This is privileged, confidential information, intended only for the provider named. Any use or distribution by any person other than this provider is strictly prohibited. If you receive this report in error, please notify us immediately at [phone] and return the original report to us at the address above. Thank you. Anesthesia Assessment and Plan Anesthesia History Personal History: No History of Anesthesia Complications Family History: No Family History of Anesthesia Complications Exercise Tolerance Exercise Tolerance: Metabolic Equivalents>4 Pertinent Negatives Pertinent Negatives: No Symptoms of GERD Cardiac & Pulmonary Exam Cardiac Exam: Normal S1/S2 Heart Sounds Pulmonary Exam: Clear Bilateral Breath Sounds Implantable Cardiac Device Does patient have a Pacemaker or an ICD?: No Airway Exam Known Difficult Airway: No Mallampati Class: 3 Mouth Opening: Normal (> 3cm) Thyromental Distance: Greater than 3 cm Neck Range of Motion: Full ROM Neck Circumference: Thick Teeth Condition: Normal Dentition and Generalized Poor Dentition ASA Classification ASA Score: ASA 3 Emergency Case?: No NPO Status NPO Status: NPO Clears >2 hours, Solids >8 hours Anesthesia Plan Resuscitation Status: Full Code Anesthesia Technique: General Anesthesia Airway Planned: Natural Airway Monitors Used: Standard Monitors
[2025-04-24 10:51] VITALS: BMI 44.1
--- NOTE | 2025-04-24 11:15 | BOWEL_PTH ---
PATIENT: Juan Palmer JR LOC: [facility] U#:[id number] AGE/SX: 65/M ROOM: RE04/24/[address]: Mike Franco MD : 1960 BED: DIS: 04/24/2025 SPEC #: [id number] RECD: 04/24/25 12:24 STATUS: VERO REQ #: [id number] REY: 04/24/25 11:[address]: Mike Franco DEPT: Surgical Specimen RECD BY: Nicole Subramanian ENTERED: 04/24/25 12:25 SP TYPE: Bowel OTHR DR: Jose A Cali Tissues: 1 - BIOPSY BOWEL 2 - BIOPSY BOWEL 3 - BIOPSY BOWEL Procedures: GROSS AND MICRO LEVEL 4 Comments: [id number]
[2025-04-24 11:29] VITALS: BP 125/85; PULSE 79; RESP 16; TEMP 36.2; O2SAT 100
--- NOTE | 2025-04-24 11:40 | W.ANESPOSTOP ---
Postoperative Evaluation Date, Time and Location Date Performed: 04/24/25 Time Performed: 11:41 Patient Location: Day Surgery Unit Vital Signs Most Recent Imported Vital Signs: Most Recent Vital Signs Temp Pulse Resp BP Pulse Ox 36.2 C L 79 16 125/85 100 04/24/25 11:29 04/24/25 11:29 04/24/25 11:29 04/24/25 11:29 04/24/25 11:29 Pain Score Most Recent Pain Score: Most Recent Pain Score Pain Level 0 04/24/25 11:29 Assessment Mental Status: Awake (Alert & Oriented to Patient Baseline) Airway and Respiratory Function: Patent airway with normal (patient baseline) respiratory exam Cardiovascular Function: Hemodynamically Stable Hydration Status: Adequately Hydrated Nausea & Vomiting: No Nausea or Vomiting Pain: Pt. Denies Any Pain Peripheral Nerve Block: Patient did not receive a nerve block
[2025-04-24 11:59] VITALS: BP 132/88; PULSE 69; RESP 16; TEMP 36.5; O2SAT 99
== END 2025-04-24 12:04 | disposition home or self-care (01) ==
LOC: SUR 09:00
PROVIDERS: PCP Student in an Organized Health Care Education/Training Program; Visit Provider Surgery
PROC: 0DJD8ZZ Inspection of Lower Intestinal Tract, Via Natural or Artificial Opening Endoscopic (ICD-10-PCS; CPT 45378; principal; 2025-04-24 10:45)
DX: Z12.11 Encounter for screening for malignant neoplasm of colon (principal); D12.2 Benign neoplasm of ascending colon
CPT/HCPCS: 45385; 45380; 88305; J2704